=== PATIENT | male | born 1980 | race Caucasian/White ===

== ENCOUNTER 2016-08-02 10:10 | Emergency (ER) | payer OTHER ==
[2016-08-02] MEDS ORDERED: SODIUM CHLORIDE 0.9% 1,000 ML IV STA ×2 (10:18)
[2016-08-02] MEDS ORDERED: SODIUM CHLORIDE 0.9% 500 ML IV STA (10:18)
[2016-08-02] MEDS ORDERED: RX INFO: IV CONTRAST WAS GIVEN 1 EACH MISC MISCELLANE PRN (10:18)
[2016-08-02] MEDS ORDERED: MORPHINE SULFATE 4 MG/ML SYRINGE IVP STA ×4 (10:20→12:32)
[2016-08-02] MEDS ORDERED: ceFAZolin 2 GM in SODIUM CHLORIDE 0.9% 100 ML IVPB STA (10:20)
[2016-08-02] MEDS ORDERED: ACETAMINOPHEN IV (For NPO) 1,000 MG in EMPTY BAG 1 BAG IVPB STA (10:20)
[2016-08-02] MEDS ORDERED: DIPH,PERTUS(ACELL)TETVAC-LF 0.5 ML VIAL IM ONE (10:20)
[2016-08-02] MEDS ORDERED: ONDANSETRON 4 MG/2 ML VIAL IVP STA (10:43)
[2016-08-02 11:00] LABS: Basophils % (A) 0 %; CH 30.9; CHCM 34.1; Eosinophils # (A) 0.1 k/uL (0-0.7); Eosinophils % (A) 1 %; HCT 41.7 % (39.0-53.0); HDW 2.38; HGB 14.3 gm/dL (13.0-17.5); Luc # (Auto) 0.09; Luc % (Auto) 1; Lymphocytes # (A) 1.1 k/uL (1.0-4.8); Lymphocytes % (A) 9 %; MCH 31.1 pg (25.0-35.0); MCHC 34.2 g/dL (31.0-37.0); Monocytes # (A) 0.5 k/uL (0-1.0); Monocytes % (A) 5 %; Neutrophils # (A) 10.2 k/uL (1.3-7.7); Neutrophils % (A) 85 %; RBC 4.59 m/uL (4.30-5.90)
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
[2016-08-02 11:12] LABS: ALT 56 U/L (21-72); AST 62 U/L (17-59); Alcohol <10 mg/dL; Alkaline Phosphatase 45 U/L (38-126); Anion Gap 11 mmol/L; Blood Urea Nitrogen 15 mg/dL (9-20); Calcium 8.5 mg/dL (8.4-10.2); Carbon Dioxide 24 mmol/L (22-30); Chloride 104 mmol/L (98-107); Glucose 95 mg/dL (74-99); Non-African American GFR(MDRD) >60 (>60 ml/min/1.73 sqM); Potassium 4.3 mmol/L (3.5-5.1); Sodium 139 mmol/L (137-145); Total Bilirubin 0.7 mg/dL (0.2-1.3); Total Protein 6.6 g/dL (6.3-8.2)
[2016-08-02 11:19] LABS: INR 1.1 (<1.1); Prothrombin Time 11.3 sec (9.0-12.0)
[2016-08-02 11:25] LABS: Partial Thromboplastin Time 21.5 sec (22.0-30.0)
[2016-08-02 11:31] LABS: Creatine Kinase 614 U/L (55-170)
[2016-08-02 11:45] LABS: Troponin I <0.012 ng/mL (0.000-0.034)
[2016-08-02 11:52] LABS: Creatine Kinase MB 6.5 ng/mL (0.0-2.4)
--- NOTE | 2016-08-02 12:03 | CT ---
EXAMINATION TYPE: CT brain cspine wo con DATE OF EXAM: 08/02/2016 11:41 AM COMPARISON: CT facial bones same date HISTORY: Patient complains of headache post 10 foot fall off of roof. CT DLP: 1528.4 mGycm Automated exposure control for dose reduction was used. TECHNIQUE: CT scan of the head and cervical spine are performed without contrast. FINDINGS: There is no acute intracranial hemorrhage, mass effect, or midline shift identified. The ventricles and sulci are within normal limits in size. Cephalohematoma is present over the right fro ntal scalp, punctate subcutaneous emphysema compatible with laceration to the scalp. Linear lucency a t the level of the orbital roof on the right compatible with nondisplaced fracture. The globes are in tact and the visualized sinuses are remarkable for inflammatory change within the right maxillary sin us, ethmoid air cells and sphenoid sinus. Cervical spine is visualized in its entirety from C1 through upper thoracic levels and demonstrates s atisfactory alignment without evidence of acute fracture or dislocation. Prevertebral soft tissue ap pears within normal limits. The C1-C2 articulation is unremarkable. Right first rib fracture isn't n ot showing significant displacement. Clinician was fracture and C7 may be chronic. Degenerative disc changes are present. There is multilevel spondylosis with loss of disc height and intervertebral leve ls. Some calcification along the posterior aspect of the disc is present at C4-5. Multilevel foramina l encroachment is present. Only mild central canal stenosis. IMPRESSION: 1. There is no acute dislocation evident in the cervical spine. 2. No acute intracranial hemorrhage, mass effect, or midline shift is seen. 3. Orbital roof fracture on the right is nondisplaced. Victor Hugo social contact worker's fracture of indeterminate age. Right proximal first rib fracture may be indicative of significant trauma.
--- NOTE | 2016-08-02 12:05 | CT ---
EXAMINATION TYPE: CT ChestAbdPelvis w con DATE OF EXAM: 08/02/2016 11:37 AM COMPARISON: NONE HISTORY: Patient complains of right side chest and shoulder pain post fall off of roof. CT DLP: 941 mGycm. Automated Exposure Control for Dose Reduction was Utilized. CONTRAST: CT scan of the thorax, abdomen and pelvis is performed with IV Contrast, patient injected with 100 mL of Omnipaque 300. Trauma protocol. FINDINGS: LUNGS: Lung evaluation is suboptimal due to respiratory motion artifact. There is dependent atelectas is seen in both lower lobes bilaterally. No pleural effusion or pneumothorax is present bilaterally. No concerning parenchymal nodule or mass is seen bilaterally. MEDIASTINUM: There are no greater than 1 cm hilar or mediastinal lymph nodes. No cardiomegaly or pe ricardial effusion is seen. There is 4 vessel origin from the aortic arch which is a normal variant. OTHER: There is comminuted impacted fracture of the humeral head with anterior inferior dislocation o f the humerus relative to the [place] glenoid. There is additional acute comminuted displaced fracture through the distal clavicle. Acromioclavicular joint is maintained. There is acute nondisplaced vertical fracture through the right posterior first rib seen best on john nal image 56 confirmed on axial image 6. There is acute displaced fracture involving the right improvement auditor ior fourth rib on axial image 16 and minimally displaced comminuted fracture involving right posterio r sixth rib on axial image 26. There is acute nondisplaced linear fracture involving posterior right fifth rib on axial image 21 and posterior seventh rib on axial image 30. There is acute minimally displaced fracture involving posterior left eighth rib on axial image 37. Schwartz spect second nondisplaced fracture involving the lateral sixth rib on axial image 43. LIVER/GB: No significant abnormality is appreciated. PANCREAS: No significant abnormality is seen. SPLEEN: No significant abnormality is seen. ADRENALS: No significant abnormality is seen. KIDNEYS: No significant abnormality is seen. BOWEL: No significant abnormality is seen. GENITAL ORGANS: No gross abnormality seen. LYMPH NODES: No greater than 1cm abdominal or pelvic lymph nodes are appreciated. OSSEOUS STRUCTURES: No significant abnormality is seen. OTHER: There is ill-defined hematoma involving the right lateral abdominal wall seen best on coronal image 58. There is second subcutaneous hematoma over the right lateral pelvis near level of greater t rochanter on axial image 112. IMPRESSION: 1. There is acute comminuted displaced fracture of the right humeral head with multiple fracture frag ments identified. There is anterior dislocation of the shoulder. There is acute comminuted displaced fracture of the distal right clavicle without AC joint separation. There are acute nondisplaced line ar fractures involving right first, fifth, and seventh ribs and acute minimally displaced fractures i nvolving right fourth and sixth ribs. There are acute minimally displaced fractures also involving le ft posterior eighth rib and nondisplaced fracture involving the left lateral sixth rib. 2. There are moderate subcutaneous hematomas involving the right lateral mid abdominal wall and pelvi c wall. 3. No evidence of suspicious intra-abdominal or pelvic fluid collection or solid organ injury in the abdomen or pelvis. No significant pulmonary contusion is identified.
[2016-08-02 13:19] VITALS: BP 130/73; PULSE 76; RESP 18; TEMP 96.8
--- NOTE | 2016-08-02 13:31 | XR ---
Right humerus HISTORY: Fracture, trauma and pain 2 views of the right humerus on [address] chest abdomen pelvis, right elbow same date . Fracture dislocation is comminuted of the proximal right humerus. Distal clavicular fracture may be o ld, this appears to be well-corticated. Distal humerus shows a comminuted fracture involving the elbo w joint, there is extensive burst type injury. Lucency is present in the soft tissues, correlate for possible open wound. IMPRESSION: Proximal distal humeral fractures are extensive as described.
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
[2016-08-02] MEDS ORDERED: HYDROmorphone 1 MG/ML 1 ML SYRINGE IVP STA (13:34)
--- NOTE | 2016-08-02 13:36 | XR ---
Right shoulder HISTORY: Fracture, trauma and pain 2 views of the right shoulder Correlation the right humerus same day Proximal acute right humeral fracture with dislocation is present. There is superior displacement of the distal clavicle in relation to the acromion, well-corticated fracture fragment is suggestive that this is a chronic finding. Right lung apex shows multiple rib fractures. IMPRESSION: Right shoulder fracture or dislocation.
--- NOTE | 2016-08-02 13:39 | XR ---
Right wrist HISTORY: Trauma, pain 2 views of the right wrist on 3 images No comparisons Bone mineralization, joint spaces and alignment are maintained. IMPRESSION: No fracture or dislocation is evident. Consider follow-up as indicated. Limited exam.
--- NOTE | 2016-08-02 14:13 | CT ---
EXAMINATION TYPE: CT facial bones wo con DATE OF EXAM: 08/02/2016 11:39 AM COMPARISON: CT head from earlier today. HISTORY: Patient complains of right side facial and jaw pain post 10 foot fall off of roof. CT DLP: 429.3 mGycm Automated exposure control for dose reduction was used. TECHNIQUE: CT scan of the facial bone is performed without contrast, axial images are obtained, coron al reformatted images are also reviewed. FINDINGS: Nasal bridge is intact. Nasal septum is deviated to the left of midline without acute fract ure. There is acute nondisplaced linear fracture through the orbital rim extending into involve the anteri or right maxillary sinus wall. There is linear lucency suspicious for nondisplaced fracture involving the orbital roof on axial image 65 lateral to right frontal sinus. There is small air-fluid level or hemorrhage in the right maxillary sinus. Remainder orbital jones are intact. The globes are intact b ilaterally. Intraconal fat is preserved. There is small soft tissue swelling over right zygoma withou t acute fracture near axial image 60. Zygomatic arches are intact. Pterygoid plates are intact bilate rally. The mandible is intact. Temporomandibular joints are maintained bilaterally. There is air-fluid level in the left sphenoid sinus. There is mild to moderate mucosal thickening inv olving the ethmoid sinuses bilaterally. There is mild mucosal thickening involving the left maxillary sinus. IMPRESSION: There is acute nondisplaced linear fracture through the right orbital rim and probable ac [place] nondisplaced linear fracture involving the lateral right orbital roof. Some right-sided soft tis rodrigo hematoma is present.
== END 2016-08-02 13:50 | disposition other institution (70) ==
LOC: EC 10:10
DX: S02.81XA Fracture of other specified skull and facial bones, right side, initial encounter for closed fracture (principal); S42.491A Other displaced fracture of lower end of right humerus, initial encounter for closed fracture; S42.201A Unspecified fracture of upper end of right humerus, initial encounter for closed fracture; S22.41XA Multiple fractures of ribs, right side, initial encounter for closed fracture; S42.001A Fracture of unspecified part of right clavicle, initial encounter for closed fracture; W13.2XXA Fall from, out of or through roof, initial encounter; Y99.0 Civilian activity done for income or pay; F17.200 Nicotine dependence, unspecified, uncomplicated
CPT/HCPCS: 96361; 96375 ×3; 96367 ×2; 96365 ×3; 99291 ×2; 96376 ×2; 36415; 86900; 86901; 80053; 82550; 82553; 84484; 85025; 85610; 85730; 86850; 80320; 73030; 73060; 73070; 73100; 72125; 70486; 70450; 71260; 74177; J2270; J0690; J2405; J1170; Q9967; J0131